=== PATIENT | female | born 1985 | race African-American/Black ===

== ENCOUNTER → 2016-09-11 | Day surgery (SDC) | payer OTHER, MEDICAID ==
[~2016-09-11] MED LIST: BUPIVACAINE/EPINEPHRINE 0.5% PF 10 ML VIAL ONE; KETOROLAC TROMETHAMINE 30 MG/ML (IVP) VIAL IV PUSH ONE; LACTATED RINGER'S 1000 ML INJ 1,000 ML ONE; LIDOCAINE 1%/EPINEPHrine 1:100,000 SOLN 20 ML VIAL ONE; MIDAZOLAM HCL 2 MG/2 ML VIAL ONE; ONDANSETRON HCL 4 MG/2 ML VIAL IV PUSH ONE; PERC5TAB12 PO; PRENCAP6 PO; PROPOFOL 500 MG/50 ML BTL IV ONE; SODIUM CHLORIDE 0.9% INJ 10 ML ONE; ceFAZolin INJ 1,000 MG VIAL ONE
--- NOTE | 2016-09-11 16:00 | TN ---
cc: CAMMY WOOD M.D. DATE OF SURGERY: 09/11/2016 PREOPERATIVE DIAGNOSIS Breast cancer, right breast, in need of neoadjuvant chemotherapy under the direction of Dr. Solis. POSTOPERATIVE DIAGNOSIS Breast cancer, right breast, in need of neoadjuvant chemotherapy under the direction of Dr. Solis. PROCEDURE Placement of left side [id number] under fluoroscopic guidance using tunneling technique, left subclavian. ANESTHESIA TIVA. SURGEON Dr. Wood. INDICATION This is a pleasant unfortunate 31-year-old female who was found to have a right-sided breast cancer. She is in need of neoadjuvant chemotherapy. Plans were made for port placement. PROCEDURE The patient was taken to the operating room and placed in the supine position. After TIVA anesthesia her left chest and breast and infraclavicular area is prepped with Betadine. She is given preoperative antibiotics. A time-out is done. She has a tattoo in the infraclavicular area where I normally place the [id number]. For this reason we used the modifier technique using tunneling technique under fluoroscopic guidance. We are able to cannulate the subclavian vein without difficulty after anesthetizing with Marcaine solution. The entrance point is in the center of the tattoo where there was no ink. We then tunnel it inferior, slightly medial to place it above the breast tissue. After the guidewire was introduced into the subclavian vein under fluoroscopic guidance we then take the tunneling device for the catheter and thread this through the subcutaneous tissue to the subcutaneous pocket that we made. The guidewire is then cannulated with the dilator and introducer. The dilator and guidewire were removed and the catheter was threaded so it lays in the superior vena cava under fluoroscopic guidance. We then cut the catheter so the tip of the catheter is laying in the distal superior vena cava about 26 cm and we cut it. We attach it to the port site that is placed in the subcutaneous tissue. It is then reevaluated with fluoroscopic guidance and we see that it lays in the superior vena cava. We then aspirate quite easily and it is flushed with heparinized saline solution. We then close the subcutaneous port site using a deep layer with a 3-0 Vicryl and skin with 4-0 Monocryl. The small entrance site for the catheter was closed with 4-0 Vicryl. Steri-Strips were applied. Sterile bandage was applied. The patient tolerated the procedure well and had no immediate postop complications. Cammy Wood MD JMARGUERITE/TLL /2:25 PM /3:41 PM
== END | disposition home or self-care (01) ==
LOC: ESDC 12:04
PROVIDERS: ATTEND Surgery
DX: C50.911 Malignant neoplasm of unspecified site of right female breast (principal)
CPT/HCPCS: 00532; 36561; 77001; C1788; J0690; J1642; J1885; J2250; J2405; J3010; J7120